=== PATIENT | male | born 1945 | race Caucasian/White ===

== ENCOUNTER 2024-05-20 10:02 | Emergency (ER) | payer OTHER, SELFPAY ==
[2024-05-20 10:25] VITALS: BP 114/77
--- NOTE | 2024-05-20 10:29 | ED.MUSCINJ ---
HPI-Injury
<Ele Farooq MANAGER EMERGENCY - Last Filed: 05/22/24 19:46>
General
Chief Complaint: Fall
Time Seen by Provider: 05/20/24 11:10
<Brenda Pacheco PA-C - Last Filed: 05/20/24 13:39>
General
Source: patient
Exam Limitations: none
Nursing documentation reviewed up to this point in time: agreed with
History of Present Illness-Injury
Is this injury a work related problem?: No
Is pt an associate of [facility]?: No
Initial Injury comments:
78-year-old male with a past medical history of hypertension, PE (no blood thinner) presents emergency department today with concerns of left lower leg pain. Patient reports that yesterday he was walking in his house when he states that he lost his
footing and may have tripped over one of his dogs when he tripped and fell on his left side and rolled his ankle under him. Patient reports that after his fall, he is able to get up on his own and walk without any difficulties. He states did not
hit his head or injure his neck. He states that he has some pain with weightbearing but is able to walk and ambulate without difficulty. Patient not lose consciousness. Patient states that Advil at home has been managing his pain well. Patient
states that he does not currently follow with orthopedist.
ED Provider Triage
<Ele Farooq MANAGER EMERGENCY - Last Filed: 05/22/24 19:46>
-
Patient seen by provider in Triage?: Seen in Triage
Attestation: A medical screening examination has been initiated by a qualified medical provider. Based on the assessment performed at this time, it has been determined that an emergent medical condition may exist and the patient has been informed
that further medical evaluation and possible additional diagnostic testing may be needed.
HPI: States at home he fell yesterday and now has left lower leg pain. Putting the dog said he thinks he may have tripped over the rug. Now with left ankle pain.
GENERAL: Alert , in no apparent distress
EYE: No visual abnormalities.
NECK: Trachea midline
ENT: No visible abnormalities.
LUNGS: No acute respiratory distress
NEUROLOGICAL: Alert and oriented
SKIN: Skin intact. No visible changes.
MUSCULOSKELETAL: Moving extremities normally
PSYCH: Normal and appropriate interaction.
This is a medical evaluation conducted in person to initiate diagnostic evaluation and provide initial therapeutics. Please see further documentation by the treating clinician. 78-year-old male
Past History
<Ele Farooq MANAGER EMERGENCY - Last Filed: 05/22/24 19:46>
Past History
ED Past Medical History: HTN and Other (Colorectal cancer status post colostomy)
Social History
Tobacco: Non-smoker
Alcohol: None
Personal:
Living: with family
Family History
Family History: Other (Father with lung cancer)
Review of Systems
<Brenda Pacheco PA-C - Last Filed: 05/20/24 13:39>
Review of Systems
All Other Systems: ROS reviewed and negative except as documented in HPI and ROS
Phy Exam
<Brenda Pacheco PA-C - Last Filed: 05/20/24 13:39>
Physical Exam
Physical Exam:
General: Patient is well appearing and in no acute distress; non-toxic
Skin: Ecchymosis noted to the left ankle
Head: Normocephalic, atraumatic
Eyes: Sclera non-icteric. EOMs intact.
Cardiac: Regular rate
Peripheral Vascular: 2+ distal pulses on the left side
Pulm: Normal respiratory effort
Musculoskeletal: Left lateral ankle tenderness palpation, no proximal fibula or tibia tenderness, pain with varus and valgus testing
Neuro: CN II-XII intact, no focal neurologic deficits.
Psychiatric: Appropriate mood and affect.
<Jael Davala, DO - Last Filed: 05/20/24 11:44>
Physical Exam
Physical Exam:
General: Well-appearing, no clinical signs of dehydration, nontoxic and in no acute distress
HEENT: protecting airway
Neck: appears supple
CV: Normal heart rate, regular rhythm
Resp: No accessory muscle use, no increased work of breathing, lungs clear to auscultation bilaterally
Abd: Soft and non-distended, no tenderness to palpation
Extremities: No deformities, no swelling
Neuro: alert, no present verbal response
: deferred
Rectal: deferred
Psych: Normal affect
Skin: Intact
Injury Course
<Ele Farooq MANAGER EMERGENCY - Last Filed: 05/22/24 19:46>
Orders/Labs/Results
Orders:
Orders
05/20/24 10:31
Ankle, left 3 view CR [CR Ankle - Left Min 3 Views ] Urgent
Comment:
Reason For Exam: pain after fall
<Brenda Pacheco PA-C - Last Filed: 05/20/24 13:39>
Orders/Labs/Results
Orders:
Orders
05/20/24 10:31
Ankle, left 3 view CR [CR Ankle - Left Min 3 Views ] Urgent
Comment:
Reason For Exam: pain after fall
<Jael Pizano DO - Last Filed: 05/20/24 11:44>
Orders/Labs/Results
Orders:
Orders
05/20/24 10:31
Ankle, left 3 view CR [CR Ankle - Left Min 3 Views ] Urgent
Comment:
Reason For Exam: pain after fall
Procedures
<Brenda Pacheco PA-C - Last Filed: 05/20/24 13:39>
Splinting/Sling Placement
Left Ankle:
Procedure completed by: Brenda Pacheco PA-C, Nurse Laisha
Pre-splint extermity exam: neurovascular intact
Type of splint: posterior short leg
Splint material: fiberglass
Splint checked by provider?: Yes
Normal distal neurovascular exam?: Yes
<Brenda Pacheco PA-C - Last Filed: 05/20/24 13:39>
MDM/Problems Addressed
Differential Diagnosis Includes:
see below
MDM/Problems Addressed:
NUMBER AND COMPLEXITY OF PROBLEMS ADDRESSED AT THE ENCOUNTER
� Chronic conditions affecting care: HTN, HLP, peripheral neuropathy
� Acute Exacerbation and/or Progression of Chronic Illness:
� Differential Diagnosis includes: distal fibula fracture, bimalleolar fracture, trimalleolar fracture, musculoskeletal sprain/strain
AMOUNT AND/OR COMPLEXITY OF DATA TO BE REVIEWED AND ANALYZED
� I performed an independent evaluation of and my interpretation is:
X-rays: non-displaced distal fibula fracture
Laboratory Studies: not indicated at this time
Other:
� Review of other/old records: Reviewed prior record from 07/27/2019, patient seen for wrist fracture, reviewed other previous records, patient seen for PT for rupture of rotator
� Clinical information was obtained by an independent historian: present with patient who also provided history
� Prescriptions/Medications Considered but not given:
� Further testing considered but not performed:
RISK OF COMPLICATIONS AND/OR MORBIDITY OR MORTALITY OF PATIENT MANAGEMENT
� Social determinants of health affecting care: none
� Discussion with other providers: ER attending
� Escalation of care including admission/observation vs risk of discharge considered:
78-year-old male with a past medical history of GERD, DVT, PE who presents emergency department today following a fall. He is not take blood thinners. This fall occurred yesterday. He tripped and fell and rolled his ankle under him when he
believes he tripped over his dog. He has been weightbearing since without difficulty. His x-ray reveals distal fibula and tibia fracture.
He was placed in a short leg splint with U splint and posterior splint. Discussed trying to avoid weight bearing as much as possible. Patient states that he is unable to use crutches and states that his will help him stay off his feet and home
he states that he will transfer with a walker. Patient has seen Dr. Macdonald in the past, did give him referral for the same group. Patient stable for discharge.
<Jael Pizano DO - Last Filed: 05/20/24 11:44>
*Critical Care Note
Total Time (30-74mins, 75-104mins- exclusive of procedures): Not Applicable
ED Attending Note
<Ele Farooq MANAGER EMERGENCY - Last Filed: 05/22/24 19:46>
-
Portions of this chart may have been created with voice recognition software.� Occasional wrong word or��sound alike� substitutions may have occurred due to the inherent limitations of voice recognition software.
<Jael Pizano DO - Last Filed: 05/20/24 11:44>
ED Attending Note
Patient seen and examined by attending physician: Yes
I performed the substantive portion of visit, reviewed & personally made and approve the management plan that is documented in note by myself or SHRADDHA.: Yes
I performed a history and physical exam of patient and discussed management with resident, I reviewed resident's note and agree with documented findings and plan of care.: Yes
ED Attending Note:
78-year-old male presenting to the emergency department with left ankle pain and swelling. Reports that he fell yesterday, twisted his ankle. Denies head injury or loss of consciousness. Has been able to bear weight. Notes chronic neuropathy.
Pain has been controlled. Denies additional acute injuries. Pain is primarily at the lateral malleoli. Vital signs are normal.
On exam, patient resting comfortably, moderate swelling to the ankle. Distal sensation and pulses intact. Mild tenderness to the lateral aspect, lateral malleoli. X-ray confirms a nondisplaced fibular fracture. Plan for splinting and crutches
with close outpatient orthopedic follow-up and continued supportive therapy.
Discharge Plan
Departure
Patient Disposition: Home (Routine Discharge)
Date of Disposition: 05/20/24
Time of Disposition: 12:29
Patient with high blood pressure during this ER visit?: No
Condition: Good
Discharge Problem:
Fracture of distal end of left fibula
Instructions: Ankle Fracture (DC), Splint Care ED
Prescriptions:
No Action
atenolol 100 MG tablet
100 mg PO DAILY
hydrochlorothiazide 25 MG tablet
25 mg PO DAILY
hydrocodone-acetaminophen [[place]] 1 EACH tablet
1 ea PO Q4HPRN PRN (Reason: severe pain) Qty: 12 0RF
docusate sodium 100 MG capsule
100 mg PO DAILY
psyllium husk (aspartame) [Metamucil Fiber Singles] 1 PACKET powder in packet
1 packet PO DAILY
tamsulosin 0.4 MG capsule
0.4 mg PO DAILY
Referrals:
Nacho Nichols MD [Family Provider] -
Activity Restrictions/Additional Instructions:
Please call the orthopedist when you get home today when you get home today to schedule an appointment, please see the attached number for Dr. Macdonald office.
Please keep the splint dry until you see the orthopedist.
Please return to the emergency department should you experience loss of sensation in your left lower extremity, inability to wiggle your toes, pallor, increasing pain, chest pain, shortness of breath, dizziness, lightheadedness, or any other signs
or symptoms concerning to you.
Interventions
Interventions:
*Risk Screen - Suicide Last Done: 05/20/24 10:25
*General Assessment Last Done: 05/20/24 10:25
*Neglect/Abuse Screening Last Done: 05/20/24 10:25
*ED COVID-19 Vaccine History Last Done: 05/20/24 11:44
*Nursing Disposition Last Done: 05/20/24 12:49
ED-Musculoskeletal Assessment Last Done: 05/20/24 11:47
ED- Neurological Assessment Last Done: 05/20/24 11:47
ED-Skin Assessment Last Done: 05/20/24 11:47
Discharge Date and Time
Discharge Date/Time: 05/20/24 12:49
Print Language: ARMENIAN
[2024-05-20 12:49] VITALS: BP 113/78
== END 2024-05-20 12:49 | disposition home or self-care (01) ==
LOC: EMR 10:02
PROVIDERS: EMERGENCY PHYSICIAN Student in an Organized Health Care Education/Training Program; FAMILY PHYSICIAN Family Medicine
DX: S82.832A Other fracture of upper and lower end of left fibula, initial encounter for closed fracture (principal); W01.0XXA Fall on same level from slipping, tripping and stumbling without subsequent striking against object, initial encounter; Y93.01 Activity, walking, marching and hiking; I10 Essential (primary) hypertension; E78.00 Pure hypercholesterolemia, unspecified; G62.9 Polyneuropathy, unspecified; Z80.1 Family history of malignant neoplasm of trachea, bronchus and lung; Z85.048 Personal history of other malignant neoplasm of rectum, rectosigmoid junction, and anus; Z93.3 Colostomy status
CPT/HCPCS: 99283; 73610